=== PATIENT | male | born 2000 | race Caucasian/White ===

== ENCOUNTER 2023-06-02 13:32 | Emergency (ER) | payer OTHER, SELFPAY ==
[2023-06-02 13:40] VITALS: BP 133/66
--- NOTE | 2023-06-02 15:23 | ED.GENMED ---
History of Present Illness
General
Chief Complaint: Musculo-Skeletal Complaint
Source: patient
Time Seen by Provider: 06/02/23 15:05
Travel History
Have you had any contact with someone who has COVID-19?: No
Do you have any symptoms of coronavirus? Fever > 100 degrees, chills, cough, shortness of breath, sore throat, loss of taste or smell, muscle aches, or headache?: No
History of Present Illness
History of Present Illness:
23-year-old male with past medical history of bipolar disorder presenting the emergency department for approximately 1-1/2 months of left foot pain that started when he slipped in the shower stating that his bent backwards and has had pain within
the calcaneal region since, patient states pain worsens when he dorsiflexes the and feels the pain most pronounced within the calcaneal region but over the last month and a half has also started to feel pain along the lateral aspect of the
foot/ankle and then over the anterior distal ankle. Patient went to orthopedist about a week or so ago where he had an x-ray done which showed 'something along the lateral aspect of the foot' and was recommended to have an MRI but patient has not
been able to schedule this yet. Patient states that today pain seems a little bit worse and prior to getting into the shower this morning he noticed the left foot was a little bit darker in color compared to the right (notes this is currently
resolved) prompting them to come to the ER today.
Past History
Past History
ED Past Medical History: Psychiatric and Other (IBS)
ED Past Surgical History: Other (Bilateral myringotomies, wisdom teeth)
Social History
Tobacco: Non-smoker
Alcohol: Occasional
Drug: None
Personal: Single
Living: with family
Employment: Employed
Review of Systems
Review of Systems
All Other Systems: ROS reviewed and negative except as documented in HPI and ROS
Phy Exam
Physical Exam
Physical Exam:
GENERAL: Alert , in no apparent distress
EYE: conjunctiva clear
Head: Normocephalic atraumatic
NECK: Supple,
ENT: mmm.
LUNGS: no acute respiratory distress
NEUROLOGICAL: Alert and oriented
SKIN: Warm and dry, skin intact.
MUSCULOSKELETAL: Left lower extremity: No obvious deformity, erythema, edema, ecchymosis, abrasions or lacerations. Easily palpable pedal and tibial pulse which is also able to be found with Doppler without difficulty. Cap refill less than 2
seconds and sensation is grossly intact to light touch. There is mild tenderness along the distal portion of the calcaneus that worsens with dorsiflexion. Remainder of extremity is within normal limits.
PSYCH: Normal and appropriate interaction.
Scores
Heart Failure Risk
Heart Failure Risk Score: Not Applicable
Heart Score for Chest Pain Patients
STEMI patient?: Not applicable
Withdrawal Assessment of Alcohol
Withdrawal Assessment Completed?: Not applicable
Course
Vital Signs
Initial and Last Documented VS:
Initial Vital Signs
Temp Pulse Resp BP Pulse Ox
98.4 F 82 18 133/66 99
06/02/23 13:40 06/02/23 13:40 06/02/23 13:40 06/02/23 13:40 06/02/23 13:40
Last Documented Vital Signs
Temp Pulse Resp BP Pulse Ox
98.4 F 82 18 133/66 99
06/02/23 13:40 06/02/23 13:40 06/02/23 13:40 06/02/23 13:40 06/02/23 13:40
MDM/Problems Addressed
Differential Diagnosis Includes:
Calcaneal tendon injury, tendinitis, plantar fasciitis, ligamentous injury
MDM/Problems Addressed:
23-year-old male presenting the emergency department for evaluation of left foot pain that has been ongoing for around a month and a half, seen by Ortho and was recommended to have an MRI but unfortunately has been unable to do so as of yet.
Patient was most concerned today after his pain has been but had some color changes in the foot. No observable signs of any arterial or vascular compromise. Explained to patient and family that unable to obtain an MRI emergently and this needs as
an outpatient. Overall I do not suspect any emergent pathologies, patient can be discharged home. Patient has already been given a Ortho boot which he states was causing him a little bit more discomfort so he has not been wearing this. Continue
NSAIDs/Tylenol as needed for pain
*Pulse Oximetry
Patient hypoxic: no
*Critical Care Note
Total Time (30-74mins, 75-104mins- exclusive of procedures): Not Applicable
ED Attending Note
-
Portions of this chart may have been created with voice recognition software.� Occasional wrong word or��sound alike� substitutions may have occurred due to the inherent limitations of voice recognition software.
Discharge Plan
Departure
Patient Disposition: Home (Routine Discharge)
Date of Disposition: 06/02/23
Time of Disposition: 15:23
Patient with high blood pressure during this ER visit?: No
Discharge Problem:
Foot pain, left
Instructions: Metatarsalgia (DC)
Prescriptions:
No Action
dicyclomine 10 MG capsule
10 mg PO QIDPRN PRN (Reason: ibs)
pantoprazole [Protonix] 20 mg tablet,delayed release (DR/EC)
20 mg PO BID Qty: 30 0RF
ondansetron 4 mg tablet,disintegrating
4 mg PO Q8H PRN (Reason: nausea and vomiting) Qty: 14 0RF
Referrals:
Brenton Morse MD [Family Provider] -
Interventions
Interventions:
*Risk Screen - Suicide Last Done: 06/02/23 13:40
*General Assessment Last Done: 06/02/23 13:40
*Neglect/Abuse Screening Last Done: 06/02/23 13:40
*ED COVID-19 Vaccine History Last Done: 06/02/23 13:40
ED-Musculoskeletal Assessment Last Done: 06/02/23 14:35
== END 2023-06-02 15:49 | disposition home or self-care (01) ==
LOC: EMR 13:32
PROVIDERS: EMERGENCY PHYSICIAN Emergency Medicine; FAMILY PHYSICIAN Internal Medicine
DX: M79.672 Pain in left foot (principal); W18.49XA Other slipping, tripping and stumbling without falling, initial encounter; F31.9 Bipolar disorder, unspecified
CPT/HCPCS: 99282